=== PATIENT | female | born 1965 | race Caucasian/White ===

== ENCOUNTER 2023-05-07 02:41 | Emergency (ER) | payer OTHER ==
[~2023-05-07] VITALS: Ht 167.6 cm; Wt 93.2 kg
[~2023-05-07 02:41] MED LIST: DIAZ5TAB PO
[2023-05-07 02:44] VITALS: TEMP 98.1
[2023-05-07] MEDS ORDERED: ketorolac trometh inj. 60 MG/2 ML VIAL IM STA (03:22)
[2023-05-07] MEDS ORDERED: acetaminophen 325mg tablet PO STA (03:22)
[2023-05-07] MEDS ORDERED: IBUP-1984 PO (04:43)
[2023-05-07 04:44] VITALS: BP 125/71; PULSE 66; RESP 14; O2SAT 99
== END 2023-05-07 05:20 | disposition home or self-care (01) ==
LOC: ER 02:41
DX: M79.601 Pain in right arm (principal); I10 Essential (primary) hypertension; Z87.442 Personal history of urinary calculi; Z88.1 Allergy status to other antibiotic agents; Z88.0 Allergy status to penicillin; Z79.899 Other long term (current) drug therapy; Z90.49 Acquired absence of other specified parts of digestive tract
CPT/HCPCS: 93971; 96372; 99285; J1885; A4565